=== PATIENT | female | born 1995 | race African-American/Black ===

== ENCOUNTER 2023-01-08 21:14 | Emergency (ER) | payer OTHER ==
[~2023-01-08] VITALS: Ht 170.2 cm; Wt 67.1 kg
[2023-01-08] MEDS ORDERED: CEFDINIR300 MG PO (22:09)
== END 2023-01-08 22:43 | disposition home or self-care (01) ==
LOC: FSED 21:33
DX: R05.9 Cough, unspecified (principal); J02.9 Acute pharyngitis, unspecified
CPT/HCPCS: 83518; 87400; 99283